=== PATIENT | male | born 1965 | race Caucasian/White ===

== ENCOUNTER 2017-09-21 08:14 | Day surgery (SDC) | payer OTHER ==
[~2017-09-21] VITALS: Ht 152.4 cm; Wt 108.0 kg
[2017-09-21 09:01] LABS: ALBUMIN 3.9 g/dL (3.4-5.0); ANION GAP 14.2 (8-16); CARBON DIOXIDE 26.8 mmol/L (21-32); CREATININE 1.3 mg/dL (0.7-1.3); TOTAL BILIRUBIN 0.6 mg/dL (0.0-1.0)
[2017-09-21] MEDS ORDERED: PANT40EC PO (09:35)
[2017-09-21] MEDS ORDERED: BECL0.0815 INH (09:35)
[2017-09-21] MEDS ORDERED: LORA10TA19 PO (09:35)
[2017-09-21] MEDS ORDERED: PRON INH (09:35)
[2017-09-21] MEDS ORDERED: KETOROLAC 60 MG/2 ML VIAL IM ONE (10:00)
[2017-09-21] MEDS ORDERED: ONDANSETRON 4 MG/2 ML VIAL IVP ONE (10:00)
[2017-09-21] MEDS ORDERED: SUCCINYLCHOLINE CHLORIDE 200 MG/10 ML VIAL IV ONE (10:00)
[2017-09-21] MEDS ORDERED: ROCURONIUM 50 MG/5 ML VIAL IV ONE (10:00)
[2017-09-21] MEDS ORDERED: SEVOFLURANE 250 ML BTL INH ONE (10:00)
[2017-09-21] MEDS ORDERED: PROPOFOL 200 MG/20 ML VIAL IV ONE (10:00)
[2017-09-21] MEDS ORDERED: DEXAMETHASONE 4 MG/ML VIAL IVP ONE (10:00)
[2017-09-21] MEDS ORDERED: ceFAZolin 1,000 MG VIAL ONE (10:04)
[2017-09-21] MEDS ORDERED: BUPIVACAINE-MPF 0.25% 30 ML VIAL INJ ONE (10:04)
[2017-09-21] MEDS ORDERED: MEPERIDINE 50 MG/ML SYR ONE (10:15)
[2017-09-21] MEDS ORDERED: fentaNYL 0.05 MG/ML VIAL ONE (10:15)
[2017-09-21] MEDS ORDERED: MIDAZOLAM 2 MG/2 ML VIAL ONE (10:15)
[2017-09-21] MEDS ORDERED: LACTATED RINGERS 1,000 ML IV SCH (10:46)
[2017-09-21] MEDS ORDERED: ONDANSETRON 4 MG/2 ML VIAL IVP PRN (10:50)
[2017-09-21] MEDS ORDERED: HYDROmorphone 1 MG/ML AMP IVP PRN (10:50)
[2017-09-21] MEDS ORDERED: MEPERIDINE 25 MG/ML SYR IVP PRN (10:50)
[2017-09-21] MEDS ORDERED: diphenhydrAMINE 50 MG/ML VIAL IVP PRN (10:50)
[2017-09-21] MEDS ORDERED: HYDROcodone/APAP 5/325 MG 1 TAB TAB PO PRN (11:25)
[2017-09-21] MEDS ORDERED: HYDROmorphone PFS 2 MG/ML SYR IVP PRN (11:25)
[2017-09-21] MEDS ORDERED: NACL 0.9% 1,000 ML IV SCH (11:25)
[2017-09-21] MEDS ORDERED: MORPHINE SULFATE 4 MG/ML SYR IV PRN (11:25)
[2017-09-21] MEDS ORDERED: MORPHINE SULFATE 2 MG/ML SYR IVP PRN (11:25)
[2017-09-21] MEDS ORDERED: ONDANSETRON 4 MG/2 ML VIAL IV PRN (11:25)
[2017-09-21] MEDS ORDERED: LABETALOL 100 MG/20 ML VIAL IVP SCH (11:55)
[2017-09-21] MEDS ORDERED: LABETALOL 100 MG/20 ML VIAL ONE (12:01)
[2017-09-21] MEDS ORDERED: HYDROcodone/APAP 5/325 MG 1 TAB TAB PO ONE (13:07)
== END 2017-09-21 14:45 | disposition home or self-care (01) ==
LOC: MMU 08:14 → MDS 08:14
PROVIDERS: ATTEND Surgery
DX: K42.9 Umbilical hernia without obstruction or gangrene (principal); J45.909 Unspecified asthma, uncomplicated; K21.9 Gastro-esophageal reflux disease without esophagitis; E11.9 Type 2 diabetes mellitus without complications; E66.9 Obesity, unspecified; Z98.890 Other specified postprocedural states; Z79.899 Other long term (current) drug therapy; Z68.30 Body mass index [BMI] 30.0-30.9, adult
CPT/HCPCS: 36415; 49585; 71045; 80053; C1781; J0330; J0690; J1100; J1885; J2250; J2405; J2704; J3010; J3490; J7060; J7120; J2175